=== PATIENT | male | born 1995 | race Caucasian/White ===

== ENCOUNTER 2017-05-30 00:48 | Emergency (ER) | payer SELFPAY ==
[2017-05-30 00:54] VITALS: BP 125/94
--- NOTE | 2017-05-30 00:56 | ER Report ---
History and Physical Time Seen By MD: 00:55 HPI/ROS CHIEF COMPLAINT: Diarrhea 2 days HISTORY OF PRESENT ILLNESS: 21-year-old male presents ambulatory to the ER complaining of diarrhea for 2 days. He now notes some bloody diarrhea but his rectum is very raw and bleeding. He notes no fevers. Patient denies recent travel exposure to ill contacts. He thinks he might of the bad food. She notes no recent antibiotic use. He notes occasional sharp, crampy abdominal pain. He's had no nausea or vomiting. REVIEW OF SYSTEMS: Respiratory: No cough, no dyspnea. Cardiovascular: No chest pain, no palpitations. Gastrointestinal: No vomiting, no abdominal pain. Musculoskeletal: No back pain. Allergies: Coded Allergies: No Known Drug Allergies (Unverified , 05/30/17) Home Meds Active Scripts Tramadol Hcl (TRAMADOL HCL) 50 Mg Tablet, 1 TAB PO Q6H Y for PAIN, #15 MG TAKE ONE BY MOUTH every SIX HOURS NEEDED Prov:NASIR JACKSON DO 05/30/17 Ondansetron Hcl (ZOFRAN) 4 Mg Tablet, 4 MG PO Q6H Y for NAUSEA/VOMITING, #12 Prov:NASIR JACKSON DO 05/30/17 Reviewed Nurses Notes: Yes Old Medical Records Reviewed: Yes Constitutional Vital Sign - Last 24 Hours 05/30/17 00:54 Temp 97.7 Pulse 54 Resp 14 B/P (MAP) 125/94 Pulse Ox 94 O2 Delivery Room Air Physical Exam General Appearance: The patient is alert, has no immediate need for airway protection and no current signs of toxicity. Vital signs stable, afebrile, pulse ox normal HEENT: Pupils equal and round no injection. Oropharynx without redness, mucous members are moist Respiratory: Chest is non tender, lungs are clear to auscultation. Cardiac: regular rate and rhythm Gastrointestinal: Abdomen is soft and non tender, no masses, bowel sounds normal., Benign and nonsurgical Musculoskeletal: Neck: Neck is supple and non tender. Extremities have full range of motion and are non tender. Skin: No rashes or lesions. DIFFERENTIAL DIAGNOSIS: After history and physical exam differential diagnosis was considered for diarrhea, food poisoning, gastroenteritis, viral syndrome, Medical Decision Making ED Course/Re-evaluation ED Course Patient admitted to an examination room. H&P was done. The differential diagnoses was considered. On clinical examination is a benign nonsurgical abdomen. He's having occasional sharp, crampy abdominal pain. He's had diarrhea for 2 days, likely secondary to food poisoning. Patient advised a clear liquid diet. Patient advised to use Imodium to stop the diarrhea. He's advised ibuprofen for inflammatory pain relief. Prescription for Zofran and tramadol provided for additional simple medical relief. Decision to Disposition Date: May 30, 2017 Decision to Disposition Time: 01:08 Depart Departure Latest Vital Signs Vital Signs Date Time Temp Pulse Resp B/P (MAP) Pulse Ox O2 Delivery O2 Flow Rate FiO2 05/30/17 00:54 97.7 54 14 125/94 94 Room Air Impression: Primary Impression: Diarrhea Additional Impression: Abdominal cramping Condition: Improved Disposition: HOME OR SELF-CARE Referrals: BRITTANY DOTSON MD New Scripts Tramadol Hcl (TRAMADOL HCL) 50 Mg Tablet 1 TAB PO Q6H Y for PAIN, #15 MG TAKE ONE BY MOUTH every SIX HOURS NEEDED Prov: ANSIR JACKSON DO 05/30/17 Ondansetron Hcl (ZOFRAN) 4 Mg Tablet 4 MG PO Q6H Y for NAUSEA/VOMITING, #12 Prov: NASIR JACKSON DO 05/30/17 Patient Instructions: Acute Diarrhea (ED), Clear Liquid Diet (ED) Additional Instructions: Follow clear liquid diet for 24-48 hours and advance to the brat diet, bananas, rice, applesauce and toast Avoid fatty food, dairy, greasy foods, vegetables for 48 hours Use Imodium to stop the diarrhea Take ibuprofen 200 mg 3 tablets 3 times a day for inflammatory pain relief Use prescription medicine to control your symptoms of nausea and vomiting or severe pain relief Follow-up with primary care if unimproved in 3-5 days. You can go to [facility] or the physician listed on your paperwork Problem Qualifiers Primary Impression: Diarrhea Diarrhea type: unspecified type Qualified Codes: R19.7 - Diarrhea, unspecified NASIR JACKSON DO May 30, 2017 00:56
[2017-05-30] MEDS ORDERED: ONDA4TAB97 PO (01:14)
[2017-05-30] MEDS ORDERED: TRAM-420 PO (01:14)
[2017-05-30] MEDS ORDERED: ONDANSETRON 4 MG ODT TH SL ONE (01:15)
[2017-05-30] MEDS ORDERED: traMADol 50 MG TAB TH 2 TAB/BOTTLE PO ONE (01:15)
== END 2017-05-30 01:25 | disposition home or self-care (01) ==
LOC: ER 01:06
DX: R19.7 Diarrhea, unspecified (principal); R10.9 Unspecified abdominal pain
CPT/HCPCS: 99282; C9399; S0119